=== PATIENT | female | born 1960 | race Caucasian/White ===

== ENCOUNTER 2016-12-31 20:17 | Inpatient (IN) | payer OTHER ==
[~2016-12-31] VITALS: Ht 170.2 cm; Wt 61.1 kg
[~2016-12-31 20:17] MED LIST: ADVAIR HFA120 INHALA IH; ADVIL LIQUI-GE200 MG PO; APRESOLINE10 MG PO; AZITHROMYCIN500 M1 PO; CEFDINIR300 MG PO; CEFTIN500 MG PO; GUAIFENESI100 MG/5 M PO; LACTINEX CHEWA1 EACH PO; LEVAQUIN750 MG PO; MOBIC15 MG PO; MS CONTIN,ORAMO15 M1 PO; NAPROSYN500 MG PO; OXAYDO5 MG PO; PHENERGAN-CODE120 ML PO; PREDNISONE20 MG PO; PROVENTIL,2.5 MG/0.5 AEROSOL; REGLAN10 MG PO; RESTORIL30 MG PO; VENTOLIN HFA18 GM IH; ZESTRIL20 MG PO; ZITHROMAX Z-PA250 MG PO
[2016-12-31 20:57] LABS: HEMATOCRIT 38.6 % (36.0-46.0); MCH 29.2 PG (29.0-34.0); MCHC 32.6 G/DL (30.0-36.0); MCV 89.6 FL (83-99); MEAN PLAT.VOLUME 10.3 uM^3 (9.5-12.4); PLATELET COUNT 465 K/uL (156-360); RBC DIS.WIDTH-CV 15.8 % (11.8-14.6); RBC DIS.WIDTH-SD 51.6 % (39-53); RED BLOOD COUNT 4.31 M/uL (3.80-5.20); WHITE BLOOD COUNT 12.6 K/uL (4.1-10.2)
[2016-12-31 21:12] LABS: CHLORIDE 108 mEq/L (99-109); POTASSIUM 3.6 mEq/L (3.7-5.4); SODIUM 142 mEq/L (136-147)
[2016-12-31 21:14] LABS: GLUCOSE 100 mg/dL (70-99)
[2016-12-31 21:16] LABS: ANION GAP 16 MEQ/L (2-14)
[2016-12-31 21:18] LABS: GFR ESTIMATE (CALCULATED) > 59 mL/min/
[2016-12-31 21:19] LABS: UREA NITROGEN (BUN) 13 mg/dL (9-23)
[2016-12-31 21:26] LABS: TROP-I INTERPRETATION NEGATIVE; TROPONIN-I < 0.01 ng/mL (0.0-0.30)
[2016-12-31] MEDS ORDERED: PROPRANOLOL HCL40 MG PO (23:16)
[2016-12-31] MEDS ORDERED: NORVASC10 MG PO (23:16)
[2016-12-31] MEDS ORDERED: IBUPROFEN800 MG PO (23:17)
[2017-01-01] VITALS (7 sets, daily range): BP systolic 127–146; BP diastolic 71–77
[2017-01-01 05:48] LABS: EOSINOPHIL (%) 0 % (0-5); HEMATOCRIT 35.7 % (36.0-46.0); IMMATURE GRANULOCYTE (%) 0.3 % (0.0-0.7); INSTRUMENT ABS NEUTROPHIL CT 8.3 K/uL; LYMPHOCYTE COUNT 0.4 K/uL (1.0-2.8); MCH 28.7 PG (29.0-34.0); MCHC 31.9 G/DL (30.0-36.0); MCV 89.9 FL (83-99); MEAN PLAT.VOLUME 10.5 uM^3 (9.5-12.4); MONOCYTE (%) 0.5 % (3-12); NEUTROPHIL (%) 94.6 % (45-76); NEUTROPHIL COUNT 8.3 K/uL (1.8-6.4); PLATELET COUNT 408 K/uL (156-360); RBC DIS.WIDTH-CV 15.9 % (11.8-14.6); RBC DIS.WIDTH-SD 52.5 % (39-53); RED BLOOD COUNT 3.97 M/uL (3.80-5.20)
[2017-01-01 05:52] LABS: WHITE BLOOD COUNT 8.8 K/uL (4.1-10.2)
[2017-01-01 06:00] LABS: ANION GAP 13 MEQ/L (2-14); CHLORIDE 103 MEQ/L (99-109); GFR ESTIMATE (CALCULATED) > 59 mL/min/; GLUCOSE 296 mg/dL (70-99); POTASSIUM 3.8 MEQ/L (3.7-5.4); SAMPLE HEMOLYSIS CHECK 0; SAMPLE ICTERIC CHECK 0; SAMPLE LIPEMIA CHECK 0; SODIUM 139 MEQ/L (136-147); UREA NITROGEN (BUN) 16 mg/dL (9-23)
[2017-01-02 04:12] VITALS: BP 130/69
[2017-01-02 06:52] LABS: HEMATOCRIT 33.3 % (36.0-46.0); MCH 28.4 PG (29.0-34.0); MCHC 30.6 G/DL (30.0-36.0); MCV 92.8 FL (83-99); MEAN PLAT.VOLUME 10.8 uM^3 (9.5-12.4); PLATELET COUNT 369 K/uL (156-360); RBC DIS.WIDTH-CV 15.8 % (11.8-14.6); RED BLOOD COUNT 3.59 M/uL (3.80-5.20); WHITE BLOOD COUNT 9.2 K/uL (4.1-10.2)
[2017-01-02 07:18] LABS: ANION GAP 9 MEQ/L (2-14); CHLORIDE 106 MEQ/L (99-109); GFR ESTIMATE (CALCULATED) > 59 mL/min/; GLUCOSE 173 mg/dL (70-99); POTASSIUM 4.3 MEQ/L (3.7-5.4); SAMPLE HEMOLYSIS CHECK 0; SAMPLE ICTERIC CHECK 0; SAMPLE LIPEMIA CHECK 0; SODIUM 139 MEQ/L (136-147); UREA NITROGEN (BUN) 17 mg/dL (9-23)
[2017-01-02 07:26] VITALS: BP 142/84
[2017-01-02 08:04] LABS: INTERNAL CONTROL VALID? YES
[2017-01-02 08:26] VITALS: BP 136/77
[2017-01-02 10:46] VITALS: BP 130/86
[2017-01-02 16:51] VITALS: BP 157/87
[2017-01-02 19:46] VITALS: BP 147/88
[2017-01-03] VITALS: BP 142/80
[2017-01-03 04:15] VITALS: BP 152/78
[2017-01-03 07:12] LABS: HEMATOCRIT 31.7 % (36.0-46.0); MCH 28.4 PG (29.0-34.0); MCHC 31.5 G/DL (30.0-36.0); MCV 90.1 FL (83-99); MEAN PLAT.VOLUME 10.5 uM^3 (9.5-12.4); PLATELET COUNT 336 K/uL (156-360); RBC DIS.WIDTH-CV 15.6 % (11.8-14.6); RBC DIS.WIDTH-SD 51.5 % (39-53); RED BLOOD COUNT 3.52 M/uL (3.80-5.20); WHITE BLOOD COUNT 7.2 K/uL (4.1-10.2)
[2017-01-03 08:03] VITALS: BP 132/86
[2017-01-03 10:52] VITALS: BP 138/80
[2017-01-03 15:05] VITALS: BP 154/85
[2017-01-03 20:00] VITALS: BP 153/78
[2017-01-04] VITALS: BP 147/9; BP 147/90
[2017-01-04 04:00] VITALS: BP 141/78
[2017-01-04 07:52] VITALS: BP 162/79
[2017-01-04 11:02] VITALS: BP 139/70
[2017-01-04 15:28] VITALS: BP 178/90
[2017-01-05] VITALS: BP 153/91
[2017-01-05 08:35] VITALS: BP 163/85
[2017-01-05 13:27] LABS: GFR ESTIMATE (CALCULATED) > 59 mL/min/
[2017-01-05 16:23] VITALS: BP 153/80
[2017-01-05 20:00] VITALS: BP 160/82
[2017-01-06] VITALS: BP 166/91
[2017-01-06 04:00] VITALS: BP 144/85
[2017-01-06 09:11] VITALS: BP 160/85
[2017-01-06 13:01] VITALS: BP 134/82
[2017-01-06 16:39] VITALS: BP 142/97
[2017-01-06 20:22] VITALS: BP 165/85
[2017-01-07 00:25] VITALS: BP 122/66
[2017-01-07 03:57] VITALS: BP 136/83
[2017-01-07 07:53] VITALS: BP 160/80
[2017-01-07] MEDS ORDERED: ZOLPIDEM TARTRAT5 MG PO (09:24)
[2017-01-07] MEDS ORDERED: SEROQUEL12.5 MG PO (09:24)
[2017-01-07] MEDS ORDERED: MUCINEX600 MG PO (09:24)
[2017-01-07] MEDS ORDERED: Thiamine,Vitamin B1 PO (09:24)
[2017-01-07] MEDS ORDERED: ZYVOX600 MG PO (09:24)
[2017-01-07] MEDS ORDERED: PREDNISONE10 MG PO (09:24)
[2017-01-07] MEDS ORDERED: BUPROPION HCL150 M2 PO (09:24)
== END 2017-01-07 18:00 | disposition home or self-care (01) | DRG 166 ==
LOC: EME 20:17 → EDOF 01-01 01:32 → 5SOUTH 01-01 01:32
PROVIDERS: Family Medicine; Internal Medicine; Nurse Practitioner Adult Health; Physician Assistant Medical
PROC: 0BBF8ZX Excision of Right Lower Lung Lobe, Via Natural or Artificial Opening Endoscopic, Diagnostic (ICD-10-PCS; principal; 2017-01-03)
PROC: 0BB48ZX Excision of Right Upper Lobe Bronchus, Via Natural or Artificial Opening Endoscopic, Diagnostic (ICD-10-PCS; principal; 2017-01-03)
PROC: 0BBD8ZX Excision of Right Middle Lung Lobe, Via Natural or Artificial Opening Endoscopic, Diagnostic (ICD-10-PCS; principal; 2017-01-03)
PROC: 079 Lymphatic and Hemic Systems, Drainage (ICD-10-PCS; principal; 2017-01-03)
DX: J44.0 Chronic obstructive pulmonary disease with (acute) lower respiratory infection (principal); J18.9 Pneumonia, unspecified organism; F33.9 Major depressive disorder, recurrent, unspecified; J44.1 Chronic obstructive pulmonary disease with (acute) exacerbation; I10 Essential (primary) hypertension; F17.210 Nicotine dependence, cigarettes, uncomplicated; D86.9 Sarcoidosis, unspecified; R59.0 Localized enlarged lymph nodes; K59.00 Constipation, unspecified; F41.9 Anxiety disorder, unspecified; R91.8 Other nonspecific abnormal finding of lung field; F10.20 Alcohol dependence, uncomplicated; Z91.19 Patient's noncompliance with other medical treatment and regimen; E78.5 Hyperlipidemia, unspecified; R09.02 Hypoxemia
CPT/HCPCS: 71010; 71020; 71275; 80048; 80202; 82164 90; 82565; 83605; 84484; 85025; 85027; 85379; 87040; 87070; 87077; 87102; 87116; 87147; 87205; 87206; 87278; 87449; 88108; 88173; 88305; 93005; 94640; 94640 76; 94799; 99202; 99281; 99285; J0456; J0696; J1644; J2250; J2930; J3010; J3370; J7030; J7050; J7512